=== PATIENT | male | born 1995 | race African-American/Black ===

== ENCOUNTER 2018-01-20 17:34 | Observation (INO) | payer BC ==
[2018-01-20 17:43] VITALS: BMI 27.3
[2018-01-20] MEDS ORDERED: Ondansetron ODT 4 MG TAB PO PRN (20:11)
[2018-01-20] MEDS ORDERED: Ondansetron PF 4 MG/2 ML Vial IVP PRN (20:11)
[2018-01-20] MEDS: Sodium Chloride 0.9% 1,000 ML IV SCH (20:37)
[2018-01-21] MEDS ORDERED: Acetaminophen 325 MG TAB PO PRN (01:04)
[2018-01-21 04:35] LABS: #Lymphocytes 1.2 thou/uL (1.20-3.40); #Monocytes 1.3 thou/uL (0.11-0.59); #Neutrophils 10.6 thou/uL (1.40-6.50); %Eosinophils 0.1 % (0.0-10.0); %Lymphocytes 9.3 % (21.0-51.0); %Monocytes 9.8 % (0.0-10.0); %Neutrophils 80.8 % (42.0-75.0); Hemoglobin 12.9 g/dL (14.0-18.0); Mean Corpuscular HGB CONC 33.2 g/dL (32.0-36.0); Mean Corpuscular Hemoglobin 27.8 pg (27.0-31.0); Mean Corpuscular Volume 83.7 fL (78.0-98.0); Mean Platelet Volume 9.1 fL (7.4-10.4); Platelet Count 160 thou/uL (130-400); RBC Distribution Width 11.5 % (11.5-14.5); Red Blood Cell (RBC) Count 4.66 mill/uL (4.70-6.10); White Blood Cell (WBC) Count 13.1 thou/uL (4.8-10.8)
--- NOTE | 2018-01-21 04:36 | HP ---
CHIEF COMPLAINT: Transferred from outside ER for possible sepsis. The patient presented there for upper respiratory symptoms. HISTORY OF PRESENT ILLNESS: The patient is a 22-year-old male who is generally in very good health. He presented to the outside emergency department with complaints of some nasal congestion and sore throat. The patient reports that his symptoms started on Friday. He started having a scratchy throat and some nasal congestion. He subsequently had some generalized fatigue and his symptoms persisted over the next couple of days where he developed fever, generalized aches and chills and significant fatigue. Therefore, he presented to the emergency department. In the emergency department, the patient was noted to have blood pressure in the 90s at times. He did respond to fluid. He also had a white count of 12.6 and the lactic acid was slightly elevated and, therefore, we felt the patient deserved admission for observation. Of note, his workup there also included a BioFire which was positive for rhino/enterovirus. The remainder of his workup was negative including flu screens and strep screens. REVIEW OF SYSTEMS: GENERAL: The patient denies any weight loss or sleep disturbances. ENT: There is no hearing, vision, taste, or smell deficits. He does have the nasal sinus congestion and sore throat. GI: Denies swallowing difficulty, constipation. He does have some diarrhea that started since he got here to the hospital today. CARDIOVASCULAR: No chest pain, palpitations, or edema. PULMONARY: He has some mild cough. He has no shortness of breath or wheezing. : No dysuria, frequency, nocturia, or incontinence. SKIN: No rash or lesions. NEUROLOGIC: No numbness, weakness, or tingling. PSYCH: No anxiety or depression. ENDOCRINE: No polyuria or polydipsia. PAST MEDICAL HISTORY: Negative. PAST SURGICAL HISTORY: Shoulder surgery. FAMILY HISTORY: Father had diabetes. Mother is healthy. SOCIAL HISTORY: Nonsmoker, nondrinker, non drug user. He is . His is his surrogate decision maker and he is FULL CODE. ALLERGIES: HYDROCODONE. CURRENT MEDICATIONS: None. PHYSICAL EXAMINATION: VITAL SIGNS: Temperature is 98.4, pulse 87, respirations 16, O2 saturation 98% on room air, and blood pressure is 122/73. GENERAL APPEARANCE: Age-appropriate male. He is in no distress. He is awake, alert, oriented, pleasant, and cooperative. HEENT: PERRL. Oropharyngeal exam reveals enlarged bilateral tonsils with some purulent adherence and patches on both tonsils, slightly more on the right with uvula slightly displaced to the right. NECK: Supple and symmetric with no lymphadenopathy, JVD, or carotid bruits. HEART: Regular rate and rhythm without murmurs, gallops, or rubs. LUNGS: Clear to auscultation bilaterally. Good chest wall expansion and air exchange. ABDOMEN: Soft, nontender and nondistended. Positive bowel sounds. No masses. No organomegaly. EXTREMITIES: Warm and dry with no edema. LABORATORY DATA: Labs obtained from the outside facility. The patient had i- STAT labs to monitor his lactic acid, which included VBG results, but the lactic acid at 10:06 was 1.6, repeat at 12:19 was 2.72, repeat at 1437 hours was 2.46. His urinalysis has trace ketones, trace protein, otherwise negative. Sodium 138, potassium 3.7, chloride 100, CO2 of 26, glucose 118, BUN 15, creatinine 1.1. CK 169. White count 12.6, hemoglobin 14.3, and platelets 143. Strep test negative. Flu A and B negative. BioFire positive for human rhino/enterovirus. IMAGING STUDIES: Chest x-ray negative. IMPRESSION AND PLAN: 1. Possible sepsis. This patient has elevated white blood cell count with slightly elevated lactic acid level. He had tachycardia and systolic pressure in the 90s at the emergency department. The patient improved after some fluids and told the ER provider there that he felt like he was essentially back to his baseline other than some general fatigue. The patient had a temperature of 103.6 in the emergency department as well. The patient received IV antibiotics there as well as IV decadron. Specifically, he received some Rocephin. We will continue to monitor the patient's vital signs in the observation tonight. We will recheck his lactic acid level in the morning and continue IV fluids. 2. Rhino/enterovirus. The patient appears to have a viral syndrome which does not appear to be influenza. He is positive for a rhinovirus. He has upper respiratory tract symptoms including nasal and sinus congestion, sore throat, and mild coryza. Treat symptomatically. Continue with fluids. Job ID: [id number] [facility]
[2018-01-21 04:54] LABS: Anion Gap 13 mmol/L (10-20); BUN (Urea Nitrogen) 12 mg/dL (8.9-20.6); Calc. Creatinine Clearance 153 mL/min (70-130); Calcium 8.9 mg/dL (7.8-10.44); Carbon Dioxide 22 mmol/L (22-29); Chloride 107 mmol/L (98-107); Estimated GFR-MDRD Greater than 90; Glucose 150 mg/dL (70-105); Potassium 3.9 mmol/L (3.5-5.1); Sodium 138 mmol/L (136-145)
[2018-01-21] MEDS: Sodium Chloride 0.9% 1,000 ML IV SCH (05:41)
[2018-01-21 09:51] LABS: ALT (SGPT) 17 U/L (8-55); AST (SGOT) 16 U/L (5-34); Albumin 3.6 g/dL (3.5-5.0); Alkaline Phosphatase 54 U/L (40-150); Bilirubin, Direct 0.1 mg/dL (0.1-0.3); Bilirubin, Total 0.3 mg/dL (0.2-1.2); Protein, Total 6.6 g/dL (6.0-8.3)
[2018-01-21] MEDS ORDERED: Loperamide HCl 2 MG CAP PO PRN (10:18)
[2018-01-21 12:10] VITALS: BP 105/57; TEMP 98.1
--- NOTE | 2018-01-21 13:41 | PDOC.PN ---
- Subjective Encounter Start Date: 01/21/18 Encounter Start Time: 13:39 Mr. Rosales was seen today in follow-up of Acute viral syndrome. He says he feels much better today. - Objective Resuscitation Status - Order Detail: 01/20/18 20:11 Resuscitation Status Routine Resuscitation Status: FULL: Full Resuscitation Discussed with: patient MAURICIO Reviewed: Yes Vital Signs & Weight: Vital Signs (12 hours) Temp Pulse Resp BP BP Pulse Ox 01/21/18 12:08 98.1 F 87 16 105/57 L 97 01/21/18 08:00 97.7 F 82 18 114/65 97 01/21/18 07:47 97.7 F 82 18 114/65 97 01/21/18 06:55 97.7 F 82 18 114/65 97 01/21/18 04:30 98.1 F 87 18 111/57 L 97 Weight Weight 185 lb I&O: 01/20/18 01/21/18 01/22/18 06:59 06:59 06:59 Intake Total 1956 Balance 1956 Result Diagrams: 01/21/18 03:47 01/21/18 03:47 Phys Exam - Physical Examination HEENT: PERRLA Respiratory: no wheezing, no rales, no rhonchi, clear to auscultation bilateral Cardiovascular: RRR, no significant murmur, no rub Gastrointestinal: soft, non-tender, no distention, positive bowel sounds Musculoskeletal: no edema Dx/Plan (1) Viral syndrome Status: Acute (2) Sepsis syndrome Code(s): [id number] - Status: Acute - Plan * Viral syndrom with sepsis- he is symptomatically improved * His Lactic acid level has normalized * He is stable for discharge home..
--- NOTE | 2018-01-22 12:52 | DIS ---
DATE OF ADMISSION: 01/20/2018 DATE OF DISCHARGE: 01/21/2018 PRIMARY CARE PHYSICIAN: Dr. Marko Mchugh. DISCHARGE DISPOSITION: Home. PRIMARY DISCHARGE DIAGNOSIS: Viral syndrome with sepsis. DISCHARGE MEDICATIONS: None. CODE STATUS: Full code. ALLERGIES: HYDROCODONE. HOSPITAL COURSE: Mr. Rosales is a pleasant 22-year-old gentleman, who presented to the emergency room with fevers, chills, generalized weakness, and fatigue. He was evaluated in the ER and was found to have an elevated white blood cell count as well as lactic acid. For this reason, he was placed in observation. He was treated symptomatically with IV fluid resuscitation and antiemetics and the following day, he was improved, but he did have an episode of diarrhea. Stool studies were obtained, but these were pending at the time of discharge. Since he is afebrile and his lab work has improved, he will be discharged home for followup. It is notable that he did have a rhinovirus screen, which was positive. Therefore, he likely has a viral syndrome secondary to rhinovirus and this should be self-limiting. Job ID: [id number]
== END 2018-01-21 15:17 | disposition home or self-care (01) ==
LOC: T4-B 17:34
PROVIDERS: ADMIT Family Medicine; ATTEND Family Medicine
DX: A41.89 Other specified sepsis (principal); B34.8 Other viral infections of unspecified site; Z88.5 Allergy status to narcotic agent
CPT/HCPCS: 36415; 80048; 80076; 83605; 83630; 85025; 87324; 87328; 87329; 87449; 87899; 90471; 90686; 96361; 96374; G0008; G0378; J2405